=== PATIENT | female | born 1960 | race American Indian/Alaskan Native ===

== ENCOUNTER 2021-09-30 15:22 | Emergency (ER) | payer OTHER ==
[~2021-09-30] VITALS: Ht 167.6 cm; Wt 103.0 kg
--- NOTE | ~2021-09-30 | EKG ---
[facility] [address] [facility] [place], [place] [address] Draft EKG completed, results pending confirmation PATIENT NAME: NEVILLE PORTERFELY COREAS Electrocardiogram DATE OF : 58 PHYSICIAN: PRELIMINARY REPORT #: [id number] REPORT IS CONFIDENTIAL AND NOT TO BE RELEASED WITHOUT AUTHORIZATION
[2021-09-30] MEDS ORDERED: BAYER CHEWABLE81 MG (16:02)
== END 2021-09-30 18:43 | disposition home or self-care (01) ==
LOC: ED 15:22
DX: L50.9 Urticaria, unspecified (principal); R53.1 Weakness; Z88.8 Allergy status to other drugs, medicaments and biological substances; Z79.82 Long term (current) use of aspirin; Z20.822 Contact with and (suspected) exposure to COVID-19
CPT/HCPCS: 36415; 80053; 85025; 87502; 93005; 93010; C9803; U0003

== ENCOUNTER 2024-12-22 19:23 | Emergency (ER) | payer MEDICARE, OTHER ==
[~2024-12-22] VITALS: Ht 167.6 cm; Wt 101.0 kg
[~2024-12-22 19:23] MED LIST: BAYER CHEWABLE81 MG
[2024-12-22 20:15] LABS: BASOPHILS 0.1 % (0.1-1.2); EOSINOPHILS 0.8 % (0.7-5.8); LYMPHOCYTES 18.3 % (19.3-51.7); MCH 31.7 PG (25.6-32.2); MCHC 33.7 g/dL (32.2-35.5); MCV 94.0 fL (79.4-94.8); MONOCYTES 5.7 % (4.7-12.5); NEUTROPHILS 74.9 % (34.0-71.1); RBC 4.83 M/uL (3.93-5.22)
[2024-12-22 20:16] LABS: BLOOD/HGB, URINE SMALL (Negative); KETONE, URINE TRACE (Negative); LEUK ESTERASE, URINE SMALL (negative); NITRITE, URINE NEGATIVE (negative)
[2024-12-22 20:21] LABS: BACTERIA, URINE 2+ /hpf (negative); CASTS, URINE NONE SEEN \\lpf; CRYSTALS, URINE NONE SEEN (0-1+); EPITHELIAL CELLS, URINE SQUAMOUS 1+ /lpf (0-1+); REFLEX CULTURE, URINE Yes (No)
[2024-12-22 20:32] LABS: ALT (SGPT) 20.0 U/L (14-59); AST (SGOT) 21.0 U/L (15-37); GLOMERULAR FILTRATION RATE,EST 78.0 mL/min (>60); PROTEIN, TOTAL 7.9 g/dL (6.4-8.2); UREA NITROGEN 18.0 mg/dL (7-18)
[2024-12-22] MEDS ORDERED: FAMOTIDINE 20 MG/ 2 ML VIAL IV ONE (22:00)
[2024-12-22] MEDS ORDERED: CEPHALEXIN500 MG PO (23:05)
[2024-12-22 23:15] VITALS: BP 146/87
== END 2024-12-22 23:17 | disposition home or self-care (01) ==
LOC: ED 19:23
PROVIDERS: Internal Medicine
DX: K52.9 Noninfective gastroenteritis and colitis, unspecified (principal); N39.0 Urinary tract infection, site not specified; Z79.82 Long term (current) use of aspirin; Z88.8 Allergy status to other drugs, medicaments and biological substances
CPT/HCPCS: 36415; 74177; 80053; 81001; 83690; 83735; 85025; 87088; 96374; 96375; 99284-25; J0696; Q9967